=== PATIENT | male | born 2000 | race Asian ===

== ENCOUNTER 2023-08-26 17:50 | Observation (INO) ==
[2023-08-26 20:24] LABS: Hematocrit 26.6 % (38-53); Hemoglobin 7.1 g/dL (13.2-16.3); Mean Corpuscular Hemoglobin 14.4 pg (27-33); Mean Corpuscular Hgb Conc 26.7 g/dL (31-36); Mean Corpuscular Volume 53.8 fL (80-97); Mean Platelet Volume 8.4 fL (7.5-11.2); Platelet Count 348 10^3/uL (150-450); Red Blood Count 4.94 10^6/uL (4.06-5.63); Red Cell Distribution Width 23.8 % (12-17)
[2023-08-26 20:40] LABS: ALT 17 U/L (7-52); AST 16 U/L (13-39); Albumin 4.2 g/dL (3.2-5.2); Albumin/Globulin Ratio 2.3 (1-3); Alkaline Phosphatase 68 U/L (35-149); Anion Gap 4 mmol/L (2-16); Blood Urea Nitrogen 14 mg/dL (6-24); CO2 Carbon Dioxide 27 mmol/L (22-32); Calcium 8.7 mg/dL (8.6-10.3); Chloride 107 mmol/L (101-111); Creatinine, Serum 0.74 mg/dL (0.67-1.17); Globulin 1.8 g/dL (2-4); Glucose 121 mg/dL (70-100); Lipase < 10 U/L (11.0-82.0); Potassium 3.9 mmol/L (3.5-5.0); Sodium 138 mmol/L (135-145); Total Bilirubin 0.4 mg/dL (0.2-1.0); eGFR CKD-EPI 131.4 (>60)
[2023-08-26] MEDS: Lactated Ringers 1000 ml BAG 1,000 ML IV ONE (20:43)
[2023-08-26 21:07] LABS: ABS Eosinophils 0.1 10^3/uL (0.0-0.5); ABS Lymphocytes 1.9 10^3/uL (1.0-4.8); ABS Monocytes 0.3 10^3/uL (0.0-1.1); ABS Neutrophils 3.7 10^3/uL (1.5-7.6); ABS Nucleated RBC 0.01 10^3/ul; Anisocytosis 2+; Eosinophil % 0.9 %; Hypochromasia 1+; Lymphocyte % 31.7 %; Nucleated Red Blood Cells % 0.1 %/100WBC (0.0-0.8)
[2023-08-26 21:09] LABS: Urine Appearance Turbid; Urine Bilirubin Negative (Negative); Urine Blood Negative (Negative); Urine Color Yellow; Urine Glucose Negative (Negative); Urine Ketones Negative (Negative); Urine Nitrite Negative (Negative); Urine Protein Trace (Negative); Urine Specific Gravity 1.034 (1.002-1.030); Urine Urobilinogen Negative (Negative); Urine pH 6.5 (5.0-8.0)
[2023-08-26] MEDS: Iohexol 300 (CONTRAST) 10 ML SDV IV ONE (21:18)
[2023-08-27 02:17] LABS: ABS Basophils 0.1 10^3/uL (0.0-0.1); ABS Eosinophils 0.1 10^3/uL (0.0-0.5); ABS Monocytes 0.5 10^3/uL (0.0-1.1); ABS Neutrophils 4.4 10^3/uL (1.5-7.6); ABS Nucleated RBC 0.01 10^3/ul; Eosinophil % 0.9 %; Hematocrit 24.7 % (38-53); Hemoglobin 6.7 g/dL (13.2-16.3); Lymphocyte % 28.4 %; Mean Corpuscular Hemoglobin 14.8 pg (27-33); Mean Corpuscular Hgb Conc 27.2 g/dL (31-36); Mean Corpuscular Volume 54.5 fL (80-97); Mean Platelet Volume 8.3 fL (7.5-11.2); Nucleated Red Blood Cells % 0.2 %/100WBC (0.0-0.8); Platelet Count 300 10^3/uL (150-450); Red Blood Count 4.54 10^6/uL (4.06-5.63); Red Cell Distribution Width 24.3 % (12-17)
[2023-08-27 03:48] LABS: % Iron Saturation 4 % (15-55); .Transferrin 371 mg/dL (203-362); Iron < 20 ug/dL (50-212); LDH 152 U/L (140-271); Total Iron Binding Capacity 519 mcg/dL (250-450); Unsaturated Iron Binding 499 ug/dL
[2023-08-27 04:03] LABS: Immature Retic Fraction 0.52
[2023-08-27 04:06] LABS: Corrected Retic Count 1.3 % (0.5-2.2); Hematocrit for Retic CNT 26.6 % (38-53); RBC Retic Count 4.94 10^6/ul (4.06-5.63)
[2023-08-27 04:10] LABS: Ferritin 2.5 ng/mL (24-336)
[2023-08-27 04:14] LABS: Folate 12.55 ng/mL (5.90-24.80)
[2023-08-27 04:15] LABS: Vitamin B12 159 pg/mL (180-914)
[2023-08-27] MEDS: Ferric Gluconate IV 250 MG in NS 0.9% 250 ml 200 ML IVPB SCH (11:03)
[2023-08-27 11:55] LABS: Hepatitis B Surface Antigen Nonreactive (Nonreactive)
[2023-08-27 12:00] LABS: Hepatitis A Ab IgM Negative (Negative); Hepatitis B Core IgM Nonreactive (Nonreactive)
[2023-08-27 12:12] LABS: Hepatitis C Antibody Negative (Negative)
[2023-08-27 17:34] LABS: Hematocrit 30.1 % (38-53); Hemoglobin 8.7 g/dL (13.2-16.3)
[2023-08-28 06:01] LABS: Hematocrit 31.3 % (38-53); Hemoglobin 8.7 g/dL (13.2-16.3); Mean Corpuscular Hemoglobin 15.7 pg (27-33); Mean Corpuscular Hgb Conc 27.9 g/dL (31-36); Mean Corpuscular Volume 56.3 fL (80-97); Red Blood Count 5.56 10^6/uL (4.06-5.63); Red Cell Distribution Width 26.1 % (12-17); White Blood Count 6.7 10^3/uL (3.6-10.2)
[2023-08-28 06:15] LABS: Calcium 8.9 mg/dL (8.6-10.3); Creatinine, Serum 0.69 mg/dL (0.67-1.17); Magnesium 1.9 mg/dL (1.9-2.7); Phosphorus 3.8 mg/dL (2.5-5.0); Potassium 4.3 mmol/L (3.5-5.0); eGFR CKD-EPI 134.2 (>60)
[2023-08-28 06:19] LABS: ABS Eosinophils 0.1 10^3/uL (0.0-0.5); ABS Lymphocytes 1.8 10^3/uL (1.0-4.8); ABS Monocytes 0.5 10^3/uL (0.0-1.1); ABS Neutrophils 4.3 10^3/uL (1.5-7.6); ABS Nucleated RBC 0.03 10^3/ul; Anisocytosis 2+; Basophilic Stippling 1+; Eosinophil % 1.4 %; Hypochromasia 1+; Lymphocyte % 27.5 %; Mean Platelet Volume 8.5 fL (7.5-11.2); Microcytosis 3+; Nucleated Red Blood Cells % 0.5 %/100WBC (0.0-0.8); Platelet Count 363 10^3/uL (150-450); Polychromasia 1+
[2023-08-28] MEDS: Ferric Gluconate IV 250 MG in NS 0.9% 250 ml 200 ML IVPB SCH (09:54)
[2023-08-28] MEDS: Cyanocobalamin INJ 1,000 MCG/ML VIAL 1 ML VIAL IM SCH (10:03)
[2023-08-28 14:29] VITALS: BP 133/67
[2023-08-28 17:07] LABS: Submitting Laboratory Phone 6072744474
[2023-08-29] MEDS ORDERED: Cyanocobalamin INJ 1,000 MCG/ML VIAL 1 ML VIAL IM SCH (09:00)
[2023-08-30 15:41] LABS: Hb A 98.3 % (95.8-98.0); Hb A2 1.7 % (2.0-3.3)
== END 2023-08-28 17:05 | disposition home or self-care (01) ==
LOC: EDHOLD 17:50 → ED 17:50 → MEDTELE 08-27 14:00
PROVIDERS: ADMIT Internal Medicine; ATTEND Internal Medicine

== ENCOUNTER 2023-09-25 21:41 | Inpatient (IN) ==
[2023-09-25] MEDS: NS 0.9% 1000 ml BAG 1,000 ML IV ONE (22:08)
[2023-09-25] MEDS: Ondansetron 4 mg VIAL 2 MG/ML 2 ml VIAL IV ONE (22:18)
[2023-09-25] MEDS: Pantoprazole VIAL 40 MG VIAL IV ONE (22:18)
[2023-09-25 22:21] LABS: Hemoglobin 5.4 g/dL (13.2-16.3); Mean Corpuscular Hemoglobin 22.6 pg (27-33); Mean Corpuscular Hgb Conc 31.6 g/dL (31-36); Mean Corpuscular Volume 71.6 fL (80-97); Mean Platelet Volume 8.5 fL (7.5-11.2); Platelet Count 268 10^3/uL (150-450); Red Blood Count 2.38 10^6/uL (4.06-5.63); Red Cell Distribution Width 37.7 % (12-17); White Blood Count 9.8 10^3/uL (3.6-10.2)
[2023-09-25 22:52] LABS: ABS Basophils 0.1 10^3/uL (0.0-0.1); ABS Eosinophils 0.1 10^3/uL (0.0-0.5); ABS Lymphocytes 2.2 10^3/uL (1.0-4.8); ABS Monocytes 0.5 10^3/uL (0.0-1.1); ABS Neutrophils 6.9 10^3/uL (1.5-7.6); Anisocytosis 2+; Eosinophil % 0.5 %; Hypochromasia 1+; Lymphocyte % 22.8 %; Microcytosis 2+
[2023-09-25 22:58] LABS: Activated Partial Thrombo Time 27.7 seconds (26.0-38.0); INR 1.27 (0.85-1.14)
[2023-09-25] MEDS: Pantoprazole 80 mg in NS BAG 80 MG/250 ML BAG IV ONE (22:59)
[2023-09-25 23:08] LABS: Albumin 3.4 g/dL (3.2-5.2); Albumin/Globulin Ratio 3.1 (1-3); Calcium 8.1 mg/dL (8.6-10.3); Creatinine, Serum 0.84 mg/dL (0.67-1.17); Globulin 1.1 g/dL (2-4); Potassium 3.6 mmol/L (3.5-5.0); Total Bilirubin 0.2 mg/dL (0.2-1.0); Total Protein 4.5 g/dL (6.4-8.9); eGFR CKD-EPI 126.4 (>60)
[2023-09-26 03:44] LABS: Hematocrit 20.7 % (38-53); Hemoglobin 6.9 g/dL (13.2-16.3)
[2023-09-26] MEDS: Iohexol 350 (CONTRAST) 500 ML MDV IV ONE (04:02)
[2023-09-26 08:37] LABS: Hematocrit 23.7 % (38-53)
[2023-09-26] MEDS: Pantoprazole 80 mg in NS BAG 80 MG/250 ML BAG IV SCH (10:46)
[2023-09-26 14:27] LABS: Hematocrit 23.6 % (38-53)
[2023-09-26] MEDS: Lactated Ringers 1000 ml BAG 1,000 ML IV SCH (17:24)
[2023-09-26] MEDS: Ferric Gluconate IV 125 MG in NS 0.9% 100 ml BAG 100 ML IVPB ONE (20:05)
[2023-09-26] MEDS: Pantoprazole VIAL 40 MG VIAL IV SCH (20:06)
[2023-09-26 20:10] LABS: Hematocrit 22.5 % (38-53); Hemoglobin 7.5 g/dL (13.2-16.3)
[2023-09-26 22:53] LABS: Ferritin 315.2 ng/mL (24-336)
[2023-09-26 23:00] LABS: Vitamin D Total 25(OH) 8.8 ng/mL (20-50)
[2023-09-27 00:24] LABS: Hematocrit 23.4 % (38-53); Hemoglobin 7.6 g/dL (13.2-16.3)
[2023-09-27 07:09] LABS: Calcium 7.7 mg/dL (8.6-10.3); Creatinine, Serum 0.74 mg/dL (0.67-1.17); Magnesium 1.9 mg/dL (1.9-2.7); Potassium 3.8 mmol/L (3.5-5.0); eGFR CKD-EPI 131.4 (>60)
[2023-09-27 07:11] LABS: Hematocrit 25.7 % (38-53); Hemoglobin 8.6 g/dL (13.2-16.3); Mean Corpuscular Hemoglobin 26.7 pg (27-33); Mean Corpuscular Hgb Conc 33.6 g/dL (31-36); Mean Corpuscular Volume 79.4 fL (80-97); Mean Platelet Volume 8.5 fL (7.5-11.2); Platelet Count 175 10^3/uL (150-450); Red Blood Count 3.24 10^6/uL (4.06-5.63); Red Cell Distribution Width 28.7 % (12-17); White Blood Count 5.9 10^3/uL (3.6-10.2)
[2023-09-27 07:35] LABS: ABS Eosinophils 0.1 10^3/uL (0.0-0.5); ABS Lymphocytes 1.1 10^3/uL (1.0-4.8); ABS Monocytes 0.3 10^3/uL (0.0-1.1); ABS Neutrophils 4.4 10^3/uL (1.5-7.6); ABS Nucleated RBC 0.01 10^3/ul; Anisocytosis 2+; Basophilic Stippling 1+; Eosinophil % 1.2 %; Lymphocyte % 17.9 %; Microcytosis 1+; Nucleated Red Blood Cells % 0.2 %/100WBC (0.0-0.8)
[2023-09-28 04:50] LABS: Hematocrit 22.9 % (38-53); Hemoglobin 7.6 g/dL (13.2-16.3); Mean Corpuscular Hemoglobin 26.6 pg (27-33); Mean Corpuscular Hgb Conc 33.2 g/dL (31-36); Mean Corpuscular Volume 80.3 fL (80-97); Mean Platelet Volume 8.6 fL (7.5-11.2); Platelet Count 189 10^3/uL (150-450); Red Blood Count 2.85 10^6/uL (4.06-5.63); Red Cell Distribution Width 29.1 % (12-17)
[2023-09-28 05:11] LABS: Calcium 7.6 mg/dL (8.6-10.3); Creatinine, Serum 0.69 mg/dL (0.67-1.17); Magnesium 1.8 mg/dL (1.9-2.7); Potassium 3.8 mmol/L (3.5-5.0); eGFR CKD-EPI 134.2 (>60)
[2023-09-28 07:26] LABS: ABS Lymphocytes 0.9 10^3/uL (1.0-4.8); ABS Monocytes 0.3 10^3/uL (0.0-1.1); ABS Neutrophils 3.7 10^3/uL (1.5-7.6); ABS Nucleated RBC 0.01 10^3/ul; Lymphocyte % 18.6 %; Nucleated Red Blood Cells % 0.2 %/100WBC (0.0-0.8)
[2023-09-28 07:28] LABS: Anisocytosis 3+; Hypochromasia 1+; Polychromasia 1+
[2023-09-28 10:13] VITALS: BP 123/58
[2023-09-29 16:06] LABS: Vitamin E 9.3 mg/L (5.5 - 17.0)
[2023-10-02 13:03] LABS: Vitamin K Level 0.5 ng/mL (0.10-2.20)
[2023-10-02 16:33] LABS: Vitamin A, S 40.5 mcg/dL (32.5-78.0)
== END 2023-09-28 09:52 | disposition home or self-care (01) | DRG 378 ==
LOC: ED 21:41 → SUATTDRO 09-26 04:36 → EDHOLD 09-26 04:36 → ICU 09-26 09:59
PROVIDERS: ADMIT Internal Medicine; ATTEND Internal Medicine Critical Care Medicine
PROC: O.GIEGD (2023-09-26 14:35)